=== PATIENT | male | born 1945 | race Caucasian/White ===

== ENCOUNTER 2017-01-24 18:07 | Inpatient (IN) | payer MEDICAID, OTHER ==
[~2017-01-24] VITALS: Ht 172.7 cm; Wt 79.8 kg
[~2017-01-24 18:07] MED LIST: ALBMDI INH; ATOR40TA68 PO; METH10TA7 PO; METO-304 PO; PROP20TA7 PO; [UNRECOGNIZED DRUG - CODE] PO
[2017-01-24 19:00] LABS: HEMATOCRIT 37.4 % (36-54); HEMOGLOBIN 12.2 g/dL (14.0-18.0); MEAN CORPUSCULAR HEMOGLOBIN 30 pg (27-31); MEAN CORPUSCULAR HGB CONC 33 % (32-36); MEAN CORPUSCULAR VOLUME 91 fL (79.0-98.0); PLATELET COUNT (AUTO) 319 K/uL (130-430); RED BLOOD CELL COUNT(AUTO) 4.12 MIL/uL (4.2-6.2); RED CELL DISTRIBUTION WIDTH 13.6 % (9.0-15.0); WHITE BLOOD COUNT (AUTO) 17.2 K/uL (4.8-10.8)
[2017-01-24 19:07] LABS: CALCIUM 7.4 mg/dL (8.4-11.0); CREATININE 1.39 mg/dL (0.55-1.30); POTASSIUM 3.8 mmol/L (3.5-5.1)
[2017-01-24 19:11] LABS: INR 1.2 (0.80-1.20); PROTHROMBIN TIME 12.4 SECS (9.5-12.5)
[2017-01-24 19:12] LABS: ALBUMIN 2.3 g/dL (3.4-4.8); TOTAL BILIRUBIN 0.2 mg/dL (0.0-1.0)
[2017-01-24 19:24] LABS: ATYPICAL LYMPHOCYTES % 6 % (0-0); BAND % (MANUAL) 4 % (0-6); BASOPHILS % (MANUAL) 0 % (0-2); EOSINOPHILS % (MANUAL) 0 % (0-7); LYMPHOCYTES % (MANUAL) 41 % (20-46); MONOCYTES % (MANUAL) 3 % (0-11)
[2017-01-24] MEDS ORDERED: NACL 0.9% 1,000 ML IV ONE ×2 (19:45)
[2017-01-24] MEDS ORDERED: SODIUM BICARBONATE 8.4% JECT 50 MEQ/50 ML SYRINGE IVP ONE (20:00)
[2017-01-24] MEDS ORDERED: LORazepam 2 MG/ML VIAL (FOR ER USE) IVP ONE (20:00)
[2017-01-24] MEDS ORDERED: methylPREDNISolone SOD SUCC/PF 62.5 MG/ML VIAL IVP ONE (20:00)
[2017-01-24] MEDS ORDERED: LORazepam 2 MG/ML VIAL (FOR ER USE) ONE (20:07)
[2017-01-24] MEDS ORDERED: methylPREDNISolone SOD SUCC/PF 62.5 MG/ML VIAL ONE (20:09)
[2017-01-24] MEDS ORDERED: SODIUM BICARBONATE 8.4% JECT 50 MEQ/50 ML SYRINGE ONE (20:10)
[2017-01-24] MEDS ORDERED: LABETALOL 100 MG/ 20ML VIAL IVP PRN (20:30)
[2017-01-24] MEDS ORDERED: ALBUTEROL MDI INHALATION 8 GM INH INH SCH (20:30)
[2017-01-24] MEDS ORDERED: guaiFENesin/D-METHORPHAN HB 118 ML SUGAR FREE PO PRN (20:30)
[2017-01-24] MEDS ORDERED: LORazepam 2 MG/ML VIAL IVP PRN (20:30)
[2017-01-24 20:40] VITALS: BP_SYST 148
[2017-01-24 21:00] VITALS: BP_SYST 128
[2017-01-24] MEDS: D5LR 1,000 ML IV SCH (21:02)
[2017-01-24] MEDS: IPRATROPIUM/ALBUTEROL SULFATE 3 ML AMPUL.NEB INH SCH ×2 (21:12→23:01)
[2017-01-24 21:45] VITALS: BP_SYST 148
[2017-01-24 21:59] VITALS: BP_SYST 138
[2017-01-24 22:00] VITALS: BP_SYST 137
[2017-01-24] MEDS: ATORVASTATIN 20 MG TABLET PO SCH (22:16)
[2017-01-24] MEDS: METHIMAZOLE 5 MG TABLET PO SCH (22:17)
[2017-01-24] MEDS: PROPRANOLOL HCL 10 MG TABLET (INDERAL) PO SCH (22:17)
[2017-01-24] MEDS ORDERED: AMIODARONE HCL 900 MG in D5W 482 ML IV SCH (22:45)
[2017-01-24] MEDS ORDERED: AMIODARONE HCL 900 MG/18 ML VIAL IV ONE (22:45)
[2017-01-24 23:00] VITALS: BP_SYST 180
[2017-01-24] MEDS ORDERED: METOPROLOL TARTRATE 5 MG/5 ML VIAL IVP PRN (23:00)
[2017-01-24] MEDS ORDERED: METOPROLOL TARTRATE 5 MG/5 ML VIAL ONE (23:09)
[2017-01-24] MEDS: methylPREDNISolone SOD SUCC/PF 62.5 MG/ML VIAL IVP SCH (23:14)
[2017-01-24] MEDS ORDERED: PIPERACILLIN/TAZOBACTAM 3.375 GM/VIAL (ZOSYN) IV ONE (23:25)
[2017-01-24 23:26] LABS: FREE T4 (FREE THYROXINE) 0.8 ng/dL (0.6-1.6); THYROID STIMULATING HORMONE 0.02 uIu/mL (0.34-4.82)
[2017-01-25] VITALS (34 sets, daily range): BP systolic 88–135
[2017-01-25] MEDS ORDERED: ALBUTEROL SULFATE 0.083% 2.5 MG/3 ML VIAL.NEB INH PRN (00:15)
[2017-01-25] MEDS ORDERED: ALBUTEROL SULFATE 0.083% 2.5 MG/3 ML VIAL.NEB INH ONE (00:17)
[2017-01-25] MEDS: LORazepam 2 MG/ML VIAL IVP PRN ×4 (00:26→10:32)
[2017-01-25] MEDS: PIPERACILLIN/TAZO 3.375/DEX-IS 50 ML IV SCH ×4 (00:37→17:41)
[2017-01-25] MEDS: MORPHINE 2 MG/ML INJ. SYRINGE IVP PRN ×2 (01:10→13:07)
[2017-01-25] MEDS: IPRATROPIUM/ALBUTEROL SULFATE 3 ML AMPUL.NEB INH SCH ×6 (03:12→23:03)
[2017-01-25] MEDS: methylPREDNISolone SOD SUCC/PF 62.5 MG/ML VIAL IVP SCH ×3 (05:43→21:30)
[2017-01-25] MEDS: D5LR 1,000 ML IV SCH (05:44)
[2017-01-25 06:35] LABS: HEMATOCRIT 48.8 % (36-54); HEMOGLOBIN 16.2 g/dL (14.0-18.0); MEAN CORPUSCULAR HEMOGLOBIN 30 pg (27-31); MEAN CORPUSCULAR HGB CONC 33 % (32-36); MEAN CORPUSCULAR VOLUME 89 fL (79.0-98.0); PLATELET COUNT (AUTO) 481 K/uL (130-430); RED BLOOD CELL COUNT(AUTO) 5.49 MIL/uL (4.2-6.2); RED CELL DISTRIBUTION WIDTH 13.7 % (9.0-15.0)
[2017-01-25 06:50] LABS: WHITE BLOOD COUNT (AUTO) 30.3 K/uL (4.8-10.8)
[2017-01-25] MEDS ORDERED: SODIUM BICARBONATE 8.4% JECT 50 MEQ/50 ML SYRINGE IVP ONE ×2 (07:43→13:45)
[2017-01-25 07:47] LABS: POTASSIUM 5.1 mmol/L (3.5-5.1)
[2017-01-25 07:48] LABS: CALCIUM 8.5 mg/dL (8.4-11.0); CREATININE 2.28 mg/dL (0.55-1.30); TOTAL BILIRUBIN 0.5 mg/dL (0.0-1.0)
[2017-01-25 07:49] LABS: ALBUMIN 2.7 g/dL (3.4-4.8); PHOSPHORUS 2.3 mg/dL (2.7-4.5)
[2017-01-25 08:36] LABS: BAND % (MANUAL) 13 % (0-6); BASOPHILS % (MANUAL) 0 % (0-2); EOSINOPHILS % (MANUAL) 0 % (0-7); LYMPHOCYTES % (MANUAL) 5 % (20-46); MONOCYTES % (MANUAL) 8 % (0-11)
[2017-01-25] MEDS ORDERED: METOPROLOL SUCCINATE 25 MG TAB.SR.24H (TOPROL XL) PO SCH (09:00)
[2017-01-25] MEDS: METHIMAZOLE 5 MG TABLET PO SCH ×3 (09:14→21:31)
[2017-01-25] MEDS: ENOXAPARIN SODIUM 40 MG/0.4 ML SYRINGE SUBCUT SCH (09:14)
[2017-01-25] MEDS: PROPRANOLOL HCL 10 MG TABLET (INDERAL) PO SCH ×2 (09:22→21:31)
[2017-01-25] MEDS: D5/0.45 NS 1,000 ML IV SCH ×4 (09:23→19:02)
[2017-01-25] MEDS: FUROSEMIDE 40 MG/4 ML VIAL IVP SCH ×2 (11:53→19:06)
[2017-01-25] MEDS ORDERED: SODIUM BICARBONATE 8.4% JECT 50 MEQ/50 ML SYRINGE ONE (13:47)
[2017-01-25] MEDS ORDERED: NOREPINEPHRINE 4 MG/4 ML VIAL IV ONE (14:46)
[2017-01-25] MEDS ORDERED: HEPARIN SODIUM,PORCINE 5000 UNITS/ML VIAL ONE (17:23)
[2017-01-25] MEDS: NITROGLYCERIN 1 INCH (GM) OINT. TP SCH (17:31)
[2017-01-25] MEDS ORDERED: VANCOMYCIN HCL 1 GM/NS PREMIX 250 ML IV ONE (18:00)
[2017-01-25] MEDS: metroNIDAZOLE 500 mg/NS 100 ML IV SCH (21:30)
[2017-01-25] MEDS: ATORVASTATIN 20 MG TABLET PO SCH (21:31)
[2017-01-25] MEDS ORDERED: AMIODARONE HCL 900 MG/18 ML VIAL IV ONE (23:57)
[2017-01-26] VITALS (34 sets, daily range): BP systolic 87–117
[2017-01-26] MEDS: PIPERACILLIN/TAZO 3.375/DEX-IS 50 ML IV SCH ×5 (00:19→23:10)
[2017-01-26] MEDS: NITROGLYCERIN 1 INCH (GM) OINT. TP SCH ×3 (01:00→17:53)
[2017-01-26] MEDS: FUROSEMIDE 40 MG/4 ML VIAL IVP SCH ×3 (03:00→19:21)
[2017-01-26] MEDS: IPRATROPIUM/ALBUTEROL SULFATE 3 ML AMPUL.NEB INH SCH ×5 (03:47→23:08)
[2017-01-26] MEDS: methylPREDNISolone SOD SUCC/PF 62.5 MG/ML VIAL IVP SCH ×3 (05:21→21:16)
[2017-01-26] MEDS: metroNIDAZOLE 500 mg/NS 100 ML IV SCH ×2 (05:21→14:46)
[2017-01-26] MEDS: D5/0.45 NS 1,000 ML IV SCH ×5 (05:22→23:10)
[2017-01-26 06:10] LABS: BASOPHILS % (AUTO) 0.2 % (0.0-2.0); HEMATOCRIT 38.7 % (36-54); HEMOGLOBIN 13.1 g/dL (14.0-18.0); LYMPHOCYTES # (AUTO) 1.1 K/uL (1.0-5.5); LYMPHOCYTES % (AUTO) 4.5 % (20.5-51.5); MEAN CORPUSCULAR HEMOGLOBIN 30 pg (27-31); MEAN CORPUSCULAR HGB CONC 34 % (32-36); MEAN CORPUSCULAR VOLUME 88 fL (79.0-98.0); MONOCYTES # (AUTO) 0.7 K/uL (0.0-1.0); MONOCYTES % (AUTO) 2.9 % (1.7-9.3); NEUTROPHILS # (AUTO) 22.7 K/uL (1.8-7.7); NEUTROPHILS % (AUTO) 92.4 % (40.0-70.0); PLATELET COUNT (AUTO) 272 K/uL (130-430); RED BLOOD CELL COUNT(AUTO) 4.38 MIL/uL (4.2-6.2); RED CELL DISTRIBUTION WIDTH 14.1 % (9.0-15.0); WHITE BLOOD COUNT (AUTO) 24.5 K/uL (4.8-10.8)
[2017-01-26 06:27] LABS: CALCIUM 7.6 mg/dL (8.4-11.0); CREATININE 3.06 mg/dL (0.55-1.30); TOTAL BILIRUBIN 0.7 mg/dL (0.0-1.0)
[2017-01-26] MEDS: ENOXAPARIN SODIUM 40 MG/0.4 ML SYRINGE SUBCUT SCH (10:48)
[2017-01-26] MEDS: METHIMAZOLE 5 MG TABLET PO SCH ×3 (10:49→20:36)
[2017-01-26] MEDS: PROPRANOLOL HCL 10 MG TABLET (INDERAL) PO SCH ×2 (10:49→20:36)
[2017-01-26] MEDS ORDERED: HEPARIN SODIUM,PORCINE 5000 UNITS/ML VIAL IVP ONE (15:15)
[2017-01-26] MEDS ORDERED: VANCOMYCIN HCL 1,000 MG in NS 250 ML IV SCH (17:00)
[2017-01-26] MEDS: ATORVASTATIN 20 MG TABLET PO SCH (20:36)
[2017-01-27] VITALS (32 sets, daily range): BP systolic 92–125
[2017-01-27] MEDS: NITROGLYCERIN 1 INCH (GM) OINT. TP SCH ×3 (01:11→18:14)
[2017-01-27] MEDS ORDERED: FUROSEMIDE 40 MG/4 ML VIAL ONE (02:08)
[2017-01-27] MEDS: FUROSEMIDE 40 MG/4 ML VIAL IVP SCH (02:12)
[2017-01-27] MEDS: IPRATROPIUM/ALBUTEROL SULFATE 3 ML AMPUL.NEB INH SCH ×6 (03:01→23:22)
[2017-01-27] MEDS: D5/0.45 NS 1,000 ML IV SCH (04:04)
[2017-01-27] MEDS ORDERED: AMIODARONE HCL 900 MG/18 ML VIAL IV ONE (04:25)
[2017-01-27] MEDS: PIPERACILLIN/TAZO 3.375/DEX-IS 50 ML IV SCH ×4 (05:38→23:58)
[2017-01-27] MEDS: methylPREDNISolone SOD SUCC/PF 62.5 MG/ML VIAL IVP SCH ×3 (05:38→21:52)
[2017-01-27 06:22] LABS: HEMATOCRIT 34.6 % (36-54); HEMOGLOBIN 11.8 g/dL (14.0-18.0); MEAN CORPUSCULAR HEMOGLOBIN 30 pg (27-31); MEAN CORPUSCULAR HGB CONC 34 % (32-36); MEAN CORPUSCULAR VOLUME 89 fL (79.0-98.0); PLATELET COUNT (AUTO) 255 K/uL (130-430); RED CELL DISTRIBUTION WIDTH 13.8 % (9.0-15.0); WHITE BLOOD COUNT (AUTO) 24.8 K/uL (4.8-10.8)
[2017-01-27 07:18] LABS: ALANINE AMINOTRANSFERASE 110 U/L (12-78); ALBUMIN 2.2 g/dL (3.4-4.8); ANION GAP 9 (5-15); ASPARTATE AMINOTRANSFERASE 71 U/L (10-37); CALCIUM 7.7 mg/dL (8.4-11.0); CHLORIDE 95 mmol/L (98-107); CREATININE 2.66 mg/dL (0.55-1.30); POTASSIUM 3.2 mmol/L (3.5-5.1); SODIUM SERUM 130 mmol/L (136-145); TOTAL BILIRUBIN 0.4 mg/dL (0.0-1.0); UREA NITROGEN, BLOOD 48 mg/dL (8-21)
[2017-01-27 07:22] LABS: GLUCOSE 434 mg/dL (70-99)
[2017-01-27 07:26] LABS: BAND % (MANUAL) 8 % (0-6); BASOPHILS % (MANUAL) 0 % (0-2); EOSINOPHILS % (MANUAL) 0 % (0-7); LYMPHOCYTES % (MANUAL) 9 % (20-46); MONOCYTES % (MANUAL) 4 % (0-11)
[2017-01-27] MEDS ORDERED: NOREPINEPHRINE 4 MG/4 ML VIAL IV ONE (08:56)
[2017-01-27] MEDS: ENOXAPARIN SODIUM 40 MG/0.4 ML SYRINGE SUBCUT SCH (09:26)
[2017-01-27] MEDS: METHIMAZOLE 5 MG TABLET PO SCH ×3 (09:27→20:37)
[2017-01-27] MEDS: PROPRANOLOL HCL 10 MG TABLET (INDERAL) PO SCH ×2 (09:27→20:38)
[2017-01-27] MEDS ORDERED: NS 100 ML IV ONE (10:00)
[2017-01-27] MEDS ORDERED: POTASSIUM CHLORIDE 20 MEQ/PKT PACKET PO ONE (13:00)
[2017-01-27] MEDS ORDERED: DEXTROSE 50% JECT 50 ML DISP.SYRIN IVP PRN (18:00)
[2017-01-27] MEDS ORDERED: INSULIN NPH 100 UNITS/ML 10 ML VIAL SUBCUT ONE (18:00)
[2017-01-27] MEDS: INSULIN REGULAR, HUMAN 100 UNITS/ML, 10 ML VIAL (novoLIN R) SUBCUT PRN ×2 (18:19→21:59)
[2017-01-27] MEDS: ATORVASTATIN 20 MG TABLET PO SCH (20:37)
[2017-01-27] MEDS: AMIODARONE HCL 200 MG TABLET PO SCH (21:00)
[2017-01-28] VITALS (30 sets, daily range): BP systolic 103–136
[2017-01-28] MEDS: NITROGLYCERIN 1 INCH (GM) OINT. TP SCH ×3 (01:51→16:22)
[2017-01-28] MEDS: INSULIN REGULAR, HUMAN 100 UNITS/ML, 10 ML VIAL (novoLIN R) SUBCUT PRN ×6 (02:01→21:19)
[2017-01-28] MEDS: IPRATROPIUM/ALBUTEROL SULFATE 3 ML AMPUL.NEB INH SCH ×6 (04:00→23:03)
[2017-01-28] MEDS: PIPERACILLIN/TAZO 3.375/DEX-IS 50 ML IV SCH ×3 (05:32→17:26)
[2017-01-28] MEDS: methylPREDNISolone SOD SUCC/PF 62.5 MG/ML VIAL IVP SCH ×3 (05:34→21:06)
[2017-01-28 06:44] LABS: BASOPHILS % (AUTO) 0.1 % (0.0-2.0); HEMATOCRIT 33.9 % (36-54); HEMOGLOBIN 11.5 g/dL (14.0-18.0); LYMPHOCYTES # (AUTO) 0.8 K/uL (1.0-5.5); LYMPHOCYTES % (AUTO) 3.9 % (20.5-51.5); MEAN CORPUSCULAR HEMOGLOBIN 30 pg (27-31); MEAN CORPUSCULAR HGB CONC 34 % (32-36); MEAN CORPUSCULAR VOLUME 89 fL (79.0-98.0); MONOCYTES # (AUTO) 0.8 K/uL (0.0-1.0); MONOCYTES % (AUTO) 3.6 % (1.7-9.3); NEUTROPHILS # (AUTO) 19.3 K/uL (1.8-7.7); NEUTROPHILS % (AUTO) 92.4 % (40.0-70.0); PLATELET COUNT (AUTO) 248 K/uL (130-430); RED BLOOD CELL COUNT(AUTO) 3.82 MIL/uL (4.2-6.2); RED CELL DISTRIBUTION WIDTH 13.7 % (9.0-15.0); WHITE BLOOD COUNT (AUTO) 20.9 K/uL (4.8-10.8)
[2017-01-28 06:51] LABS: ALANINE AMINOTRANSFERASE 85 U/L (12-78); ALBUMIN 2.2 g/dL (3.4-4.8); ANION GAP 5 (5-15); ASPARTATE AMINOTRANSFERASE 39 U/L (10-37); CALCIUM 8.2 mg/dL (8.4-11.0); CHLORIDE 101 mmol/L (98-107); GLUCOSE 262 mg/dL (70-99); SODIUM SERUM 136 mmol/L (136-145); TOTAL BILIRUBIN 0.4 mg/dL (0.0-1.0); UREA NITROGEN, BLOOD 65 mg/dL (8-21)
[2017-01-28] MEDS ORDERED: INSULIN NPH 100 UNITS/ML 10 ML VIAL SUBCUT SCH ×2 (07:00→17:00)
[2017-01-28] MEDS: FUROSEMIDE 40 MG/4 ML VIAL IVP SCH (08:15)
[2017-01-28] MEDS: ENOXAPARIN SODIUM 40 MG/0.4 ML SYRINGE SUBCUT SCH (08:15)
[2017-01-28] MEDS: PROPRANOLOL HCL 10 MG TABLET (INDERAL) PO SCH ×2 (08:17→21:06)
[2017-01-28] MEDS: METHIMAZOLE 5 MG TABLET PO SCH ×3 (08:17→21:06)
[2017-01-28] MEDS: AMIODARONE HCL 200 MG TABLET PO SCH ×2 (08:17→21:06)
[2017-01-28] MEDS ORDERED: POTASSIUM CHLORIDE 20 MEQ/PKT PACKET PO ONE (09:00)
[2017-01-28] MEDS: ACETAMINOPHEN 650 MG/20.3 ML UDC GT PRN (09:07)
[2017-01-28] MEDS: ATORVASTATIN 20 MG TABLET PO SCH (21:06)
[2017-01-29] VITALS (29 sets, daily range): BP systolic 115–139
[2017-01-29] MEDS: PIPERACILLIN/TAZO 3.375/DEX-IS 50 ML IV SCH ×4 (00:25→17:25)
[2017-01-29] MEDS: NITROGLYCERIN 1 INCH (GM) OINT. TP SCH ×3 (00:26→17:26)
[2017-01-29] MEDS: INSULIN REGULAR, HUMAN 100 UNITS/ML, 10 ML VIAL (novoLIN R) SUBCUT PRN ×4 (02:16→15:30)
[2017-01-29] MEDS: ACETAMINOPHEN 650 MG/20.3 ML UDC GT PRN (02:40)
[2017-01-29] MEDS: IPRATROPIUM/ALBUTEROL SULFATE 3 ML AMPUL.NEB INH SCH ×6 (03:59→23:20)
[2017-01-29] MEDS: methylPREDNISolone SOD SUCC/PF 62.5 MG/ML VIAL IVP SCH (05:33)
[2017-01-29 06:25] LABS: HEMATOCRIT 37.1 % (36-54); HEMOGLOBIN 12.5 g/dL (14.0-18.0); MEAN CORPUSCULAR HEMOGLOBIN 30 pg (27-31); MEAN CORPUSCULAR HGB CONC 34 % (32-36); MEAN CORPUSCULAR VOLUME 88 fL (79.0-98.0); PLATELET COUNT (AUTO) 258 K/uL (130-430); RED CELL DISTRIBUTION WIDTH 13.9 % (9.0-15.0); WHITE BLOOD COUNT (AUTO) 21.4 K/uL (4.8-10.8)
[2017-01-29 06:47] LABS: ALANINE AMINOTRANSFERASE 71 U/L (12-78); ALBUMIN 2.3 g/dL (3.4-4.8); ANION GAP 5 (5-15); ASPARTATE AMINOTRANSFERASE 38 U/L (10-37); CALCIUM 8.3 mg/dL (8.4-11.0); CHLORIDE 106 mmol/L (98-107); CREATININE 2.58 mg/dL (0.55-1.30); GLUCOSE 268 mg/dL (70-99); SODIUM SERUM 144 mmol/L (136-145); TOTAL BILIRUBIN 0.4 mg/dL (0.0-1.0); UREA NITROGEN, BLOOD 83 mg/dL (8-21)
[2017-01-29 06:58] LABS: POTASSIUM 2.9 mmol/L (3.5-5.1)
[2017-01-29 08:21] LABS: BAND % (MANUAL) 0 % (0-6); LYMPHOCYTES % (MANUAL) 5 % (20-46); MONOCYTES % (MANUAL) 4 % (0-11)
[2017-01-29 08:22] LABS: BASOPHILS % (MANUAL) 0 % (0-2); EOSINOPHILS % (MANUAL) 0 % (0-7)
[2017-01-29] MEDS: FUROSEMIDE 40 MG/4 ML VIAL IVP SCH (08:25)
[2017-01-29] MEDS: PROPRANOLOL HCL 10 MG TABLET (INDERAL) PO SCH ×2 (08:26→21:16)
[2017-01-29] MEDS: AMIODARONE HCL 200 MG TABLET PO SCH ×2 (08:26→21:12)
[2017-01-29] MEDS: METHIMAZOLE 5 MG TABLET PO SCH ×3 (08:27→21:12)
[2017-01-29] MEDS: ENOXAPARIN SODIUM 40 MG/0.4 ML SYRINGE SUBCUT SCH (08:27)
[2017-01-29] MEDS ORDERED: COMMUNICATION ORDER XX ONE (08:45)
[2017-01-29] MEDS ORDERED: methylPREDNISolone SOD SUCC 40 MG/ML VIAL IVP ONE (09:45)
[2017-01-29] MEDS ORDERED: FAMOTIDINE PF 20 MG/2 ML VIAL IVP ONE (09:45)
[2017-01-29] MEDS ORDERED: NS IV ONE (10:00)
[2017-01-29] MEDS ORDERED: POTASSIUM ACETATE IV ONE (10:00)
[2017-01-29] MEDS: INSULIN ASPART 100 UNITS/ML, 10 ML VIAL (NovoLOG) SUBCUT PRN ×2 (17:42→22:32)
[2017-01-29] MEDS ORDERED: methylPREDNISolone SOD SUCC/PF 62.5 MG/ML VIAL IVP SCH (21:00)
[2017-01-29] MEDS: ATORVASTATIN 20 MG TABLET PO SCH (21:11)
[2017-01-29] MEDS: FAMOTIDINE PF 20 MG/2 ML VIAL IVP SCH (21:13)
[2017-01-29] MEDS: methylPREDNISolone SOD SUCC 40 MG/ML VIAL IVP SCH (21:13)
[2017-01-30] VITALS (31 sets, daily range): BP systolic 107–148
[2017-01-30] MEDS ORDERED: NITROGLYCERIN 1 INCH (GM) OINT. ONE (00:25)
[2017-01-30] MEDS: PIPERACILLIN/TAZO 3.375/DEX-IS 50 ML IV SCH ×2 (00:29→05:14)
[2017-01-30] MEDS: NITROGLYCERIN 1 INCH (GM) OINT. TP SCH ×3 (00:29→16:45)
[2017-01-30] MEDS: INSULIN ASPART 100 UNITS/ML, 10 ML VIAL (NovoLOG) SUBCUT PRN ×6 (01:59→22:10)
[2017-01-30] MEDS: IPRATROPIUM/ALBUTEROL SULFATE 3 ML AMPUL.NEB INH SCH ×6 (03:59→23:14)
[2017-01-30 06:35] LABS: BASOPHILS # (AUTO) 0.1 K/uL (0.0-0.2); BASOPHILS % (AUTO) 0.2 % (0.0-2.0); HEMATOCRIT 40.8 % (36-54); HEMOGLOBIN 13.5 g/dL (14.0-18.0); LYMPHOCYTES # (AUTO) 0.9 K/uL (1.0-5.5); LYMPHOCYTES % (AUTO) 3.7 % (20.5-51.5); MEAN CORPUSCULAR HEMOGLOBIN 29 pg (27-31); MEAN CORPUSCULAR HGB CONC 33 % (32-36); MEAN CORPUSCULAR VOLUME 89 fL (79.0-98.0); MONOCYTES # (AUTO) 1.9 K/uL (0.0-1.0); MONOCYTES % (AUTO) 7.7 % (1.7-9.3); NEUTROPHILS # (AUTO) 22.4 K/uL (1.8-7.7); NEUTROPHILS % (AUTO) 88.4 % (40.0-70.0); PLATELET COUNT (AUTO) 302 K/uL (130-430); RED CELL DISTRIBUTION WIDTH 14.6 % (9.0-15.0); WHITE BLOOD COUNT (AUTO) 25.3 K/uL (4.8-10.8)
[2017-01-30 07:01] LABS: ALANINE AMINOTRANSFERASE 65 U/L (12-78); ALBUMIN 2.5 g/dL (3.4-4.8); ASPARTATE AMINOTRANSFERASE 31 U/L (10-37); CALCIUM 8.7 mg/dL (8.4-11.0); CREATININE 2.47 mg/dL (0.55-1.30); GLUCOSE 299 mg/dL (70-99); THYROID STIMULATING HORMONE 0.01 uIu/mL (0.34-4.82); TOTAL BILIRUBIN 0.4 mg/dL (0.0-1.0); UREA NITROGEN, BLOOD 92 mg/dL (8-21)
[2017-01-30 07:33] LABS: ANION GAP 6 (5-15); CHLORIDE 110 mmol/L (98-107); POTASSIUM 3.2 mmol/L (3.5-5.1); SODIUM SERUM 149 mmol/L (136-145)
[2017-01-30] MEDS: FUROSEMIDE 40 MG/4 ML VIAL IVP SCH (08:07)
[2017-01-30] MEDS: ENOXAPARIN SODIUM 40 MG/0.4 ML SYRINGE SUBCUT SCH (08:07)
[2017-01-30] MEDS: methylPREDNISolone SOD SUCC 40 MG/ML VIAL IVP SCH ×2 (08:07→21:47)
[2017-01-30] MEDS: METHIMAZOLE 5 MG TABLET PO SCH ×2 (08:07→21:50)
[2017-01-30] MEDS: FAMOTIDINE PF 20 MG/2 ML VIAL IVP SCH ×2 (08:07→21:49)
[2017-01-30] MEDS: PROPRANOLOL HCL 10 MG TABLET (INDERAL) PO SCH ×2 (08:08→21:50)
[2017-01-30] MEDS: AMIODARONE HCL 200 MG TABLET PO SCH ×2 (08:08→21:47)
[2017-01-30] MEDS ORDERED: KCL 40 mEq in 100 mL (PREMIX) 100 ML IV ONE (11:30)
[2017-01-30] MEDS: D5W 1,000 ML IV SCH (11:44)
[2017-01-30] MEDS ORDERED: POTASSIUM CHLORIDE 40 MEQ in NS 250 ML IV ONE (12:00)
[2017-01-30] MEDS: metroNIDAZOLE 250 mg/NS 50 ML IV SCH ×2 (13:28→21:46)
[2017-01-30] MEDS: ACETAMINOPHEN 650 MG/20.3 ML UDC GT PRN (17:11)
[2017-01-30] MEDS: ATORVASTATIN 20 MG TABLET PO SCH (21:50)
[2017-01-31] VITALS (35 sets, daily range): BP systolic 88–151
[2017-01-31] MEDS: NITROGLYCERIN 1 INCH (GM) OINT. TP SCH ×3 (01:58→17:47)
[2017-01-31] MEDS: INSULIN ASPART 100 UNITS/ML, 10 ML VIAL (NovoLOG) SUBCUT PRN ×6 (02:01→20:52)
[2017-01-31] MEDS: IPRATROPIUM/ALBUTEROL SULFATE 3 ML AMPUL.NEB INH SCH ×5 (03:13→23:19)
[2017-01-31] MEDS: metroNIDAZOLE 250 mg/NS 50 ML IV SCH ×3 (06:39→22:11)
[2017-01-31 07:18] LABS: HEMATOCRIT 41.3 % (36-54); HEMOGLOBIN 13.8 g/dL (14.0-18.0); LYMPHOCYTES # (AUTO) 0.9 K/uL (1.0-5.5); MEAN CORPUSCULAR HEMOGLOBIN 30 pg (27-31); MEAN CORPUSCULAR HGB CONC 33 % (32-36); MEAN CORPUSCULAR VOLUME 89 fL (79.0-98.0); MONOCYTES # (AUTO) 1.9 K/uL (0.0-1.0); MONOCYTES % (AUTO) 6.5 % (1.7-9.3); NEUTROPHILS # (AUTO) 26.9 K/uL (1.8-7.7); NEUTROPHILS % (AUTO) 90.5 % (40.0-70.0); PLATELET COUNT (AUTO) 326 K/uL (130-430); RED BLOOD CELL COUNT(AUTO) 4.64 MIL/uL (4.2-6.2); RED CELL DISTRIBUTION WIDTH 14.5 % (9.0-15.0); WHITE BLOOD COUNT (AUTO) 29.7 K/uL (4.8-10.8)
[2017-01-31 07:24] LABS: ALANINE AMINOTRANSFERASE 69 U/L (12-78); ALBUMIN 2.5 g/dL (3.4-4.8); ANION GAP 6 (5-15); ASPARTATE AMINOTRANSFERASE 33 U/L (10-37); CALCIUM 8.6 mg/dL (8.4-11.0); CHLORIDE 113 mmol/L (98-107); CREATININE 2.51 mg/dL (0.55-1.30); GLUCOSE 356 mg/dL (70-99); POTASSIUM 3.7 mmol/L (3.5-5.1); SODIUM SERUM 152 mmol/L (136-145); TOTAL BILIRUBIN 0.3 mg/dL (0.0-1.0)
[2017-01-31 07:47] LABS: UREA NITROGEN, BLOOD 103 mg/dL (8-21)
[2017-01-31] MEDS: FUROSEMIDE 40 MG/4 ML VIAL IVP SCH (09:30)
[2017-01-31] MEDS: ENOXAPARIN SODIUM 40 MG/0.4 ML SYRINGE SUBCUT SCH (09:30)
[2017-01-31] MEDS: FAMOTIDINE PF 20 MG/2 ML VIAL IVP SCH ×2 (09:30→20:41)
[2017-01-31] MEDS: AMIODARONE HCL 200 MG TABLET PO SCH ×2 (09:31→20:43)
[2017-01-31] MEDS: METHIMAZOLE 5 MG TABLET PO SCH ×2 (09:31→20:43)
[2017-01-31] MEDS ORDERED: PROPRANOLOL HCL 10 MG TABLET (INDERAL) ONE (10:45)
[2017-01-31] MEDS: PROPRANOLOL HCL 10 MG TABLET (INDERAL) PO SCH ×2 (10:49→20:42)
[2017-01-31] MEDS: MORPHINE 2 MG/ML INJ. SYRINGE IVP PRN ×2 (11:37→15:46)
[2017-01-31] MEDS: D5W 1,000 ML IV SCH (12:36)
[2017-01-31] MEDS: LORazepam 2 MG/ML VIAL IVP PRN (14:07)
[2017-01-31] MEDS ORDERED: DIGOXIN 0.5 MG/2 ML AMP IVP ONE (17:00)
[2017-01-31] MEDS ORDERED: DIGOXIN 0.5 MG/2 ML AMP ONE (17:02)
[2017-01-31] MEDS ORDERED: DILTIAZEM HCL 25 MG/5 ML VIAL ONE (17:03)
[2017-01-31] MEDS: DILTIAZEM HCL 25 MG/5 ML VIAL IVP ONE ×2 (17:17→17:42)
[2017-01-31] MEDS ORDERED: DILTIAZEM HCL 25 MG/5 ML VIAL IVP ONE (17:30)
[2017-01-31 18:16] LABS: ANION GAP 7 (5-15); CALCIUM 8.6 mg/dL (8.4-11.0); CHLORIDE 110 mmol/L (98-107); CREATININE 2.71 mg/dL (0.55-1.30); GLUCOSE 244 mg/dL (70-99); SODIUM SERUM 150 mmol/L (136-145)
[2017-01-31 18:23] LABS: UREA NITROGEN, BLOOD 109 mg/dL (8-21)
[2017-01-31] MEDS ORDERED: DILTIAZEM HCL 125 MG/25 ML VIAL IV ONE (19:58)
[2017-01-31] MEDS: DILTIAZEM HCL 125 MG in D5W 100 ML IV SCH (20:41)
[2017-01-31] MEDS: ATORVASTATIN 20 MG TABLET PO SCH (20:43)
[2017-02-01] VITALS (29 sets, daily range): BP systolic 90–125
[2017-02-01] MEDS: D5W 1,000 ML IV SCH ×2 (00:05→10:09)
[2017-02-01] MEDS: NITROGLYCERIN 1 INCH (GM) OINT. TP SCH ×3 (00:05→18:21)
[2017-02-01] MEDS: INSULIN ASPART 100 UNITS/ML, 10 ML VIAL (NovoLOG) SUBCUT PRN ×6 (02:07→22:03)
[2017-02-01] MEDS ORDERED: DILTIAZEM HCL 125 MG/25 ML VIAL IV ONE (04:03)
[2017-02-01] MEDS: DILTIAZEM HCL 125 MG in D5W 100 ML IV SCH ×2 (04:11→12:37)
[2017-02-01] MEDS: IPRATROPIUM/ALBUTEROL SULFATE 3 ML AMPUL.NEB INH SCH ×6 (04:47→23:12)
[2017-02-01] MEDS: metroNIDAZOLE 250 mg/NS 50 ML IV SCH ×3 (05:37→21:58)
[2017-02-01 06:34] LABS: MEAN CORPUSCULAR HGB CONC 33 % (32-36); RED BLOOD CELL COUNT(AUTO) 4.47 MIL/uL (4.2-6.2)
[2017-02-01 06:52] LABS: ANION GAP 6 (5-15); CALCIUM 8.4 mg/dL (8.4-11.0); CHLORIDE 107 mmol/L (98-107); CREATININE 2.87 mg/dL (0.55-1.30); GLUCOSE 270 mg/dL (70-99); POTASSIUM 3.9 mmol/L (3.5-5.1); SODIUM SERUM 146 mmol/L (136-145)
[2017-02-01 06:59] LABS: HEMOGLOBIN 13.2 g/dL (14.0-18.0); MEAN CORPUSCULAR HEMOGLOBIN 30 pg (27-31); MEAN CORPUSCULAR VOLUME 89 fL (79.0-98.0); PLATELET COUNT (AUTO) 346 K/uL (130-430); RED CELL DISTRIBUTION WIDTH 14.3 % (9.0-15.0); WHITE BLOOD COUNT (AUTO) 28.6 K/uL (4.8-10.8)
[2017-02-01 07:06] LABS: UREA NITROGEN, BLOOD 112 mg/dL (8-21)
[2017-02-01 08:47] LABS: BASOPHILS % (MANUAL) 0 % (0-2); EOSINOPHILS % (MANUAL) 0 % (0-7); LYMPHOCYTES % (MANUAL) 11 % (20-46); MONOCYTES % (MANUAL) 8 % (0-11)
[2017-02-01] MEDS: AMIODARONE HCL 200 MG TABLET PO SCH ×2 (08:57→20:33)
[2017-02-01] MEDS: FAMOTIDINE PF 20 MG/2 ML VIAL IVP SCH ×2 (08:58→20:32)
[2017-02-01] MEDS: METHIMAZOLE 5 MG TABLET PO SCH ×2 (08:58→20:33)
[2017-02-01] MEDS: PROPRANOLOL HCL 10 MG TABLET (INDERAL) PO SCH ×2 (08:58→20:33)
[2017-02-01] MEDS ORDERED: ALBUMIN HUMAN 5% 250 ML IV ONE (09:00)
[2017-02-01] MEDS ORDERED: FUROSEMIDE 40 MG TABLET PO SCH (09:00)
[2017-02-01] MEDS: ENOXAPARIN SODIUM 40 MG/0.4 ML SYRINGE SUBCUT SCH (10:06)
[2017-02-01] MEDS: ATORVASTATIN 20 MG TABLET PO SCH (20:33)
[2017-02-01] MEDS ORDERED: PANTOPRAZOLE SODIUM 40 MG/VIAL (PROTONIX) IVP ONE (23:00)
[2017-02-02] VITALS (37 sets, daily range): BP systolic 59–133
[2017-02-02] MEDS: NITROGLYCERIN 1 INCH (GM) OINT. TP SCH ×3 (01:25→17:36)
[2017-02-02] MEDS: INSULIN ASPART 100 UNITS/ML, 10 ML VIAL (NovoLOG) SUBCUT PRN ×5 (01:29→17:41)
[2017-02-02] MEDS: IPRATROPIUM/ALBUTEROL SULFATE 3 ML AMPUL.NEB INH SCH ×6 (03:48→23:27)
[2017-02-02] MEDS: metroNIDAZOLE 250 mg/NS 50 ML IV SCH ×3 (05:20→21:09)
[2017-02-02 07:18] LABS: HEMATOCRIT 32.6 % (36-54); HEMOGLOBIN 11.1 g/dL (14.0-18.0); MEAN CORPUSCULAR HEMOGLOBIN 30 pg (27-31); MEAN CORPUSCULAR HGB CONC 34 % (32-36); MEAN CORPUSCULAR VOLUME 89 fL (79.0-98.0); PLATELET COUNT (AUTO) 237 K/uL (130-430); RED BLOOD CELL COUNT(AUTO) 3.67 MIL/uL (4.2-6.2); WHITE BLOOD COUNT (AUTO) 25.7 K/uL (4.8-10.8)
[2017-02-02 07:22] LABS: ALANINE AMINOTRANSFERASE 50 U/L (12-78); ALBUMIN 2.3 g/dL (3.4-4.8); ANION GAP 6 (5-15); ASPARTATE AMINOTRANSFERASE 40 U/L (10-37); CALCIUM 8.2 mg/dL (8.4-11.0); CHLORIDE 104 mmol/L (98-107); CREATININE 2.58 mg/dL (0.55-1.30); GLUCOSE 217 mg/dL (70-99); PHOSPHORUS 6.3 mg/dL (2.7-4.5); POTASSIUM 3.3 mmol/L (3.5-5.1); SODIUM SERUM 144 mmol/L (136-145); TOTAL BILIRUBIN 0.6 mg/dL (0.0-1.0)
[2017-02-02 07:30] LABS: UREA NITROGEN, BLOOD 104 mg/dL (8-21)
[2017-02-02] MEDS: D5W 1,000 ML IV SCH ×3 (08:18→18:59)
[2017-02-02] MEDS: LACTOBACILLUS RHAMNOSUS GG 1 CAP CAPSULE NG SCH ×2 (09:10→20:50)
[2017-02-02] MEDS: METHIMAZOLE 5 MG TABLET PO SCH ×2 (09:11→20:51)
[2017-02-02] MEDS: PANTOPRAZOLE SODIUM 40 MG/VIAL (PROTONIX) IVP SCH ×2 (09:11→20:50)
[2017-02-02] MEDS: AMIODARONE HCL 200 MG TABLET PO SCH ×2 (09:11→20:51)
[2017-02-02] MEDS: PROPRANOLOL HCL 10 MG TABLET (INDERAL) PO SCH ×2 (09:12→20:51)
[2017-02-02] MEDS: VANCOMYCIN HCL ORAL SOLUTION 250 MG/5 ML, 80 ML NG SCH ×2 (09:43→20:51)
[2017-02-02 11:29] LABS: ATYPICAL LYMPHOCYTES % 1 % (0-0); BASOPHILS % (MANUAL) 0 % (0-2); EOSINOPHILS % (MANUAL) 0 % (0-7); LYMPHOCYTES % (MANUAL) 7 % (20-46); MONOCYTES % (MANUAL) 4 % (0-11)
[2017-02-02] MEDS ORDERED: KCL 20 mEq in 100 mL (PREMIX) 100 ML IV ONE (15:00)
[2017-02-02] MEDS: ATORVASTATIN 20 MG TABLET PO SCH (20:51)
[2017-02-03] VITALS (31 sets, daily range): BP systolic 98–133
[2017-02-03] MEDS: NITROGLYCERIN 1 INCH (GM) OINT. TP SCH ×3 (01:24→17:39)
[2017-02-03] MEDS: INSULIN ASPART 100 UNITS/ML, 10 ML VIAL (NovoLOG) SUBCUT PRN ×4 (01:57→14:53)
[2017-02-03] MEDS: IPRATROPIUM/ALBUTEROL SULFATE 3 ML AMPUL.NEB INH SCH ×6 (03:43→23:05)
[2017-02-03] MEDS: metroNIDAZOLE 250 mg/NS 50 ML IV SCH ×3 (05:43→23:43)
[2017-02-03] MEDS: D5W 1,000 ML IV SCH ×2 (06:41→17:38)
[2017-02-03] MEDS: AMIODARONE HCL 200 MG TABLET PO SCH ×2 (10:24→21:51)
[2017-02-03] MEDS: PANTOPRAZOLE SODIUM 40 MG/VIAL (PROTONIX) IVP SCH ×2 (10:24→21:40)
[2017-02-03] MEDS: PROPRANOLOL HCL 10 MG TABLET (INDERAL) PO SCH ×2 (10:25→21:52)
[2017-02-03] MEDS: METHIMAZOLE 5 MG TABLET PO SCH ×2 (10:25→21:52)
[2017-02-03] MEDS: VANCOMYCIN HCL ORAL SOLUTION 250 MG/5 ML, 80 ML NG SCH ×2 (10:25→21:52)
[2017-02-03] MEDS: LACTOBACILLUS RHAMNOSUS GG 1 CAP CAPSULE NG SCH ×2 (10:33→21:51)
[2017-02-03 11:22] LABS: LYMPHOCYTES # (AUTO) 2.1 K/uL (1.0-5.5); MONOCYTES # (AUTO) 1.6 K/uL (0.0-1.0); WHITE BLOOD COUNT (AUTO) 29.4 K/uL (4.8-10.8)
[2017-02-03 11:30] LABS: ANION GAP 8 (5-15); CALCIUM 7.9 mg/dL (8.4-11.0); CHLORIDE 101 mmol/L (98-107); CREATININE 2.09 mg/dL (0.55-1.30); GLUCOSE 214 mg/dL (70-99); POTASSIUM 3.3 mmol/L (3.5-5.1); SODIUM SERUM 142 mmol/L (136-145); UREA NITROGEN, BLOOD 86 mg/dL (8-21)
[2017-02-03 11:32] LABS: BASOPHILS # (AUTO) 0.6 K/uL (0.0-0.2); EOSINOPHILS # (AUTO) 0.3 K/uL (0.0-0.4); EOSINOPHILS % (AUTO) 0.9 % (0.0-4.0); HEMOGLOBIN 10.5 g/dL (14.0-18.0); LYMPHOCYTES % (AUTO) 7.3 % (20.5-51.5); MEAN CORPUSCULAR HEMOGLOBIN 30 pg (27-31); MEAN CORPUSCULAR HGB CONC 34 % (32-36); MEAN CORPUSCULAR VOLUME 88 fL (79.0-98.0); MONOCYTES % (AUTO) 5.3 % (1.7-9.3); NEUTROPHILS # (AUTO) 24.8 K/uL (1.8-7.7); NEUTROPHILS % (AUTO) 84.5 % (40.0-70.0); PLATELET COUNT (AUTO) 226 K/uL (130-430); RED BLOOD CELL COUNT(AUTO) 3.53 MIL/uL (4.2-6.2); RED CELL DISTRIBUTION WIDTH 13.5 % (9.0-15.0)
[2017-02-03] MEDS: ATORVASTATIN 20 MG TABLET PO SCH (21:51)
[2017-02-04] VITALS (27 sets, daily range): BP systolic 99–141
[2017-02-04] MEDS: NITROGLYCERIN 1 INCH (GM) OINT. TP SCH ×3 (01:23→16:59)
[2017-02-04] MEDS: IPRATROPIUM/ALBUTEROL SULFATE 3 ML AMPUL.NEB INH SCH ×6 (03:09→23:12)
[2017-02-04] MEDS: D5W 1,000 ML IV SCH ×2 (05:06→16:08)
[2017-02-04] MEDS: metroNIDAZOLE 250 mg/NS 50 ML IV SCH ×3 (05:06→21:31)
[2017-02-04 06:46] LABS: EOSINOPHILS # (AUTO) 0.3 K/uL (0.0-0.4); EOSINOPHILS % (AUTO) 0.7 % (0.0-4.0); HEMATOCRIT 31.8 % (36-54); HEMOGLOBIN 10.8 g/dL (14.0-18.0); LYMPHOCYTES # (AUTO) 2.8 K/uL (1.0-5.5); LYMPHOCYTES % (AUTO) 7.9 % (20.5-51.5); MEAN CORPUSCULAR HEMOGLOBIN 30 pg (27-31); MEAN CORPUSCULAR HGB CONC 34 % (32-36); MEAN CORPUSCULAR VOLUME 89 fL (79.0-98.0); MONOCYTES % (AUTO) 5.6 % (1.7-9.3); NEUTROPHILS # (AUTO) 30.7 K/uL (1.8-7.7); NEUTROPHILS % (AUTO) 85.8 % (40.0-70.0); PLATELET COUNT (AUTO) 264 K/uL (130-430); RED BLOOD CELL COUNT(AUTO) 3.57 MIL/uL (4.2-6.2); RED CELL DISTRIBUTION WIDTH 13.8 % (9.0-15.0)
[2017-02-04 06:51] LABS: ANION GAP 6 (5-15); CALCIUM 8.2 mg/dL (8.4-11.0); CHLORIDE 101 mmol/L (98-107); CREATININE 1.95 mg/dL (0.55-1.30); GLUCOSE 99 mg/dL (70-99); POTASSIUM 3.2 mmol/L (3.5-5.1); SODIUM SERUM 142 mmol/L (136-145); UREA NITROGEN, BLOOD 70 mg/dL (8-21)
[2017-02-04 06:53] LABS: WHITE BLOOD COUNT (AUTO) 35.8 K/uL (4.8-10.8)
[2017-02-04] MEDS ORDERED: POTASSIUM CHLORIDE 20 MEQ/PKT PACKET PO ONE (07:15)
[2017-02-04] MEDS: METHIMAZOLE 5 MG TABLET PO SCH ×2 (08:32→20:34)
[2017-02-04] MEDS: LACTOBACILLUS RHAMNOSUS GG 1 CAP CAPSULE NG SCH ×2 (08:33→20:34)
[2017-02-04] MEDS: PANTOPRAZOLE SODIUM 40 MG/VIAL (PROTONIX) IVP SCH ×2 (08:33→20:34)
[2017-02-04] MEDS: AMIODARONE HCL 200 MG TABLET PO SCH (08:33)
[2017-02-04] MEDS: PROPRANOLOL HCL 10 MG TABLET (INDERAL) PO SCH (08:33)
[2017-02-04] MEDS: VANCOMYCIN HCL ORAL SOLUTION 250 MG/5 ML, 80 ML NG SCH ×2 (08:36→20:36)
[2017-02-04] MEDS: ATORVASTATIN 20 MG TABLET PO SCH (20:34)
[2017-02-05] VITALS (34 sets, daily range): BP systolic 104–140
[2017-02-05] MEDS: NITROGLYCERIN 1 INCH (GM) OINT. TP SCH ×3 (01:20→16:26)
[2017-02-05] MEDS: D5W 1,000 ML IV SCH ×2 (02:37→09:06)
[2017-02-05] MEDS: IPRATROPIUM/ALBUTEROL SULFATE 3 ML AMPUL.NEB INH SCH ×6 (04:16→23:13)
[2017-02-05] MEDS: metroNIDAZOLE 250 mg/NS 50 ML IV SCH ×3 (05:12→22:07)
[2017-02-05] MEDS: INSULIN ASPART 100 UNITS/ML, 10 ML VIAL (NovoLOG) SUBCUT PRN ×4 (05:14→22:01)
[2017-02-05 06:39] LABS: BASOPHILS % (AUTO) 0.1 % (0.0-2.0); EOSINOPHILS # (AUTO) 0.2 K/uL (0.0-0.4); EOSINOPHILS % (AUTO) 0.7 % (0.0-4.0); HEMATOCRIT 29.3 % (36-54); HEMOGLOBIN 9.8 g/dL (14.0-18.0); LYMPHOCYTES % (AUTO) 6.9 % (20.5-51.5); MEAN CORPUSCULAR HEMOGLOBIN 30 pg (27-31); MEAN CORPUSCULAR HGB CONC 33 % (32-36); MEAN CORPUSCULAR VOLUME 90 fL (79.0-98.0); MONOCYTES # (AUTO) 1.5 K/uL (0.0-1.0); MONOCYTES % (AUTO) 5.4 % (1.7-9.3); NEUTROPHILS # (AUTO) 24.7 K/uL (1.8-7.7); NEUTROPHILS % (AUTO) 86.9 % (40.0-70.0); PLATELET COUNT (AUTO) 269 K/uL (130-430); RED BLOOD CELL COUNT(AUTO) 3.27 MIL/uL (4.2-6.2); RED CELL DISTRIBUTION WIDTH 13.6 % (9.0-15.0); WHITE BLOOD COUNT (AUTO) 28.4 K/uL (4.8-10.8)
[2017-02-05 06:49] LABS: ANION GAP 9 (5-15); CALCIUM 8.3 mg/dL (8.4-11.0); CHLORIDE 102 mmol/L (98-107); CREATININE 1.79 mg/dL (0.55-1.30); POTASSIUM 3.3 mmol/L (3.5-5.1); SODIUM SERUM 139 mmol/L (136-145); UREA NITROGEN, BLOOD 61 mg/dL (8-21)
[2017-02-05 07:08] LABS: GLUCOSE 192 mg/dL (70-99)
[2017-02-05] MEDS: VANCOMYCIN HCL ORAL SOLUTION 250 MG/5 ML, 80 ML NG SCH ×2 (09:02→22:05)
[2017-02-05] MEDS: METHIMAZOLE 5 MG TABLET PO SCH ×2 (09:03→22:06)
[2017-02-05] MEDS: PANTOPRAZOLE SODIUM 40 MG/VIAL (PROTONIX) IVP SCH ×2 (09:03→22:04)
[2017-02-05] MEDS: LACTOBACILLUS RHAMNOSUS GG 1 CAP CAPSULE NG SCH ×2 (09:03→22:04)
[2017-02-05] MEDS ORDERED: POTASSIUM CHLORIDE 20 MEQ/PKT PACKET PO ONE (18:30)
[2017-02-05] MEDS: FLUCONAZOLE 400 mg/ NS 200 ML IV SCH (19:08)
[2017-02-05] MEDS: ATORVASTATIN 20 MG TABLET PO SCH (22:06)
[2017-02-06] VITALS (32 sets, daily range): BP systolic 93–143
[2017-02-06] MEDS: D5W 1,000 ML IV SCH ×2 (00:52→18:12)
[2017-02-06] MEDS: NITROGLYCERIN 1 INCH (GM) OINT. TP SCH (00:52)
[2017-02-06] MEDS: IPRATROPIUM/ALBUTEROL SULFATE 3 ML AMPUL.NEB INH SCH ×6 (03:11→23:37)
[2017-02-06] MEDS: INSULIN ASPART 100 UNITS/ML, 10 ML VIAL (NovoLOG) SUBCUT PRN ×3 (04:19→16:13)
[2017-02-06] MEDS: metroNIDAZOLE 250 mg/NS 50 ML IV SCH (06:31)
[2017-02-06 07:13] LABS: BASOPHILS % (AUTO) 0.1 % (0.0-2.0); EOSINOPHILS # (AUTO) 0.1 K/uL (0.0-0.4); EOSINOPHILS % (AUTO) 0.4 % (0.0-4.0); HEMATOCRIT 27.8 % (36-54); HEMOGLOBIN 9.3 g/dL (14.0-18.0); LYMPHOCYTES # (AUTO) 1.7 K/uL (1.0-5.5); LYMPHOCYTES % (AUTO) 6.6 % (20.5-51.5); MEAN CORPUSCULAR HEMOGLOBIN 30 pg (27-31); MEAN CORPUSCULAR HGB CONC 34 % (32-36); MEAN CORPUSCULAR VOLUME 89 fL (79.0-98.0); MONOCYTES # (AUTO) 1.9 K/uL (0.0-1.0); MONOCYTES % (AUTO) 7.6 % (1.7-9.3); NEUTROPHILS # (AUTO) 21.5 K/uL (1.8-7.7); PLATELET COUNT (AUTO) 262 K/uL (130-430); RED BLOOD CELL COUNT(AUTO) 3.11 MIL/uL (4.2-6.2); RED CELL DISTRIBUTION WIDTH 13.8 % (9.0-15.0); WHITE BLOOD COUNT (AUTO) 25.2 K/uL (4.8-10.8)
[2017-02-06 07:36] LABS: ANION GAP 10 (5-15); CHLORIDE 102 mmol/L (98-107); CREATININE 1.75 mg/dL (0.55-1.30); GLUCOSE 148 mg/dL (70-99); POTASSIUM 3.6 mmol/L (3.5-5.1); SODIUM SERUM 140 mmol/L (136-145); UREA NITROGEN, BLOOD 51 mg/dL (8-21)
[2017-02-06 07:42] LABS: PHOSPHORUS 4.2 mg/dL (2.7-4.5)
[2017-02-06] MEDS: PANTOPRAZOLE SODIUM 40 MG/VIAL (PROTONIX) IVP SCH ×2 (08:25→22:11)
[2017-02-06] MEDS: LACTOBACILLUS RHAMNOSUS GG 1 CAP CAPSULE NG SCH ×2 (08:25→22:11)
[2017-02-06] MEDS: VANCOMYCIN HCL ORAL SOLUTION 250 MG/5 ML, 80 ML NG SCH ×2 (08:25→22:12)
[2017-02-06] MEDS: METHIMAZOLE 5 MG TABLET PO SCH ×2 (08:25→22:11)
[2017-02-06 11:33] LABS: NEUTROPHILS % (AUTO) 85.3 % (40.0-70.0)
[2017-02-06] MEDS: FLUCONAZOLE 400 mg/ NS 200 ML IV SCH (18:13)
[2017-02-06] MEDS: ATORVASTATIN 20 MG TABLET PO SCH (22:11)
[2017-02-07] VITALS (31 sets, daily range): BP systolic 99–140
[2017-02-07] MEDS: IPRATROPIUM/ALBUTEROL SULFATE 3 ML AMPUL.NEB INH SCH ×4 (03:44→23:52)
[2017-02-07] MEDS: INSULIN ASPART 100 UNITS/ML, 10 ML VIAL (NovoLOG) SUBCUT PRN ×3 (04:57→21:51)
[2017-02-07 06:51] LABS: BASOPHILS % (AUTO) 0.1 % (0.0-2.0); EOSINOPHILS # (AUTO) 0.1 K/uL (0.0-0.4); EOSINOPHILS % (AUTO) 0.6 % (0.0-4.0); HEMATOCRIT 29.9 % (36-54); HEMOGLOBIN 9.9 g/dL (14.0-18.0); LYMPHOCYTES # (AUTO) 1.8 K/uL (1.0-5.5); LYMPHOCYTES % (AUTO) 8.5 % (20.5-51.5); MEAN CORPUSCULAR HEMOGLOBIN 29 pg (27-31); MEAN CORPUSCULAR HGB CONC 33 % (32-36); MEAN CORPUSCULAR VOLUME 89 fL (79.0-98.0); MONOCYTES # (AUTO) 1.9 K/uL (0.0-1.0); MONOCYTES % (AUTO) 8.8 % (1.7-9.3); NEUTROPHILS # (AUTO) 17.6 K/uL (1.8-7.7); PLATELET COUNT (AUTO) 293 K/uL (130-430); RED BLOOD CELL COUNT(AUTO) 3.38 MIL/uL (4.2-6.2); RED CELL DISTRIBUTION WIDTH 13.9 % (9.0-15.0); WHITE BLOOD COUNT (AUTO) 21.4 K/uL (4.8-10.8)
[2017-02-07 06:58] LABS: ANION GAP 8 (5-15); CALCIUM 8.5 mg/dL (8.4-11.0); CHLORIDE 104 mmol/L (98-107); CREATININE 1.64 mg/dL (0.55-1.30); GLUCOSE 166 mg/dL (70-99); POTASSIUM 3.9 mmol/L (3.5-5.1); SODIUM SERUM 137 mmol/L (136-145); UREA NITROGEN, BLOOD 46 mg/dL (8-21)
[2017-02-07] MEDS: VANCOMYCIN HCL ORAL SOLUTION 250 MG/5 ML, 80 ML NG SCH ×2 (08:17→20:19)
[2017-02-07] MEDS: LACTOBACILLUS RHAMNOSUS GG 1 CAP CAPSULE NG SCH ×2 (08:18→20:20)
[2017-02-07] MEDS: METHIMAZOLE 5 MG TABLET PO SCH ×2 (08:18→20:19)
[2017-02-07] MEDS: PANTOPRAZOLE SODIUM 40 MG/VIAL (PROTONIX) IVP SCH ×2 (08:18→20:19)
[2017-02-07] MEDS ORDERED: THORAZINE (chlorproMAZINE) 25 MG TAB PO PRN (09:00)
[2017-02-07] MEDS: D5W 1,000 ML IV SCH (14:37)
[2017-02-07] MEDS: FLUCONAZOLE 400 mg/ NS 200 ML IV SCH (18:10)
[2017-02-07] MEDS: ATORVASTATIN 20 MG TABLET PO SCH (20:20)
[2017-02-08] VITALS (32 sets, daily range): BP systolic 111–142
[2017-02-08] MEDS: IPRATROPIUM/ALBUTEROL SULFATE 3 ML AMPUL.NEB INH SCH ×6 (04:58→23:42)
[2017-02-08 06:41] LABS: BASOPHILS % (AUTO) 0.2 % (0.0-2.0); EOSINOPHILS # (AUTO) 0.1 K/uL (0.0-0.4); EOSINOPHILS % (AUTO) 0.6 % (0.0-4.0); HEMATOCRIT 27.1 % (36-54); HEMOGLOBIN 9.1 g/dL (14.0-18.0); LYMPHOCYTES # (AUTO) 1.5 K/uL (1.0-5.5); LYMPHOCYTES % (AUTO) 7.3 % (20.5-51.5); MEAN CORPUSCULAR HEMOGLOBIN 30 pg (27-31); MEAN CORPUSCULAR HGB CONC 34 % (32-36); MEAN CORPUSCULAR VOLUME 89 fL (79.0-98.0); MONOCYTES # (AUTO) 1.4 K/uL (0.0-1.0); MONOCYTES % (AUTO) 7.1 % (1.7-9.3); NEUTROPHILS % (AUTO) 84.8 % (40.0-70.0); PLATELET COUNT (AUTO) 311 K/uL (130-430); RED BLOOD CELL COUNT(AUTO) 3.03 MIL/uL (4.2-6.2); RED CELL DISTRIBUTION WIDTH 13.9 % (9.0-15.0)
[2017-02-08 06:55] LABS: ALANINE AMINOTRANSFERASE 31 U/L (12-78); ALBUMIN 1.8 g/dL (3.4-4.8); ANION GAP 10 (5-15); ASPARTATE AMINOTRANSFERASE 47 U/L (10-37); CALCIUM 8.5 mg/dL (8.4-11.0); CHLORIDE 100 mmol/L (98-107); CREATININE 1.52 mg/dL (0.55-1.30); GLUCOSE 144 mg/dL (70-99); POTASSIUM 3.9 mmol/L (3.5-5.1); SODIUM SERUM 133 mmol/L (136-145); TOTAL BILIRUBIN 0.5 mg/dL (0.0-1.0); UREA NITROGEN, BLOOD 41 mg/dL (8-21)
[2017-02-08] MEDS: VANCOMYCIN HCL ORAL SOLUTION 250 MG/5 ML, 80 ML NG SCH (09:04)
[2017-02-08] MEDS: LACTOBACILLUS RHAMNOSUS GG 1 CAP CAPSULE NG SCH ×2 (09:04→21:56)
[2017-02-08] MEDS: METHIMAZOLE 5 MG TABLET PO SCH ×2 (09:04→21:56)
[2017-02-08] MEDS: PANTOPRAZOLE SODIUM 40 MG/VIAL (PROTONIX) IVP SCH ×2 (09:04→21:56)
[2017-02-08] MEDS: D5W 1,000 ML IV SCH (09:06)
[2017-02-08] MEDS: INSULIN ASPART 100 UNITS/ML, 10 ML VIAL (NovoLOG) SUBCUT PRN ×3 (10:43→22:17)
[2017-02-08] MEDS: FLUCONAZOLE 400 mg/ NS 200 ML IV SCH (18:35)
[2017-02-08] MEDS: ATORVASTATIN 20 MG TABLET PO SCH (21:56)
[2017-02-09] VITALS (31 sets, daily range): BP systolic 104–155
[2017-02-09] MEDS: IPRATROPIUM/ALBUTEROL SULFATE 3 ML AMPUL.NEB INH SCH ×5 (03:55→23:11)
[2017-02-09] MEDS: INSULIN ASPART 100 UNITS/ML, 10 ML VIAL (NovoLOG) SUBCUT PRN ×3 (05:13→23:15)
[2017-02-09] MEDS: D5W 1,000 ML IV SCH (05:33)
[2017-02-09] MEDS: METHIMAZOLE 5 MG TABLET PO SCH ×2 (08:53→21:45)
[2017-02-09] MEDS: LACTOBACILLUS RHAMNOSUS GG 1 CAP CAPSULE NG SCH ×2 (08:53→21:45)
[2017-02-09] MEDS: PANTOPRAZOLE SODIUM 40 MG/VIAL (PROTONIX) IVP SCH ×2 (08:53→21:44)
[2017-02-09] MEDS: FLUCONAZOLE 400 mg/ NS 200 ML IV SCH (19:41)
[2017-02-09] MEDS: ATORVASTATIN 20 MG TABLET PO SCH (21:45)
[2017-02-10] VITALS (32 sets, daily range): BP systolic 111–138
[2017-02-10] MEDS: IPRATROPIUM/ALBUTEROL SULFATE 3 ML AMPUL.NEB INH SCH ×6 (02:59→23:02)
[2017-02-10] MEDS: INSULIN ASPART 100 UNITS/ML, 10 ML VIAL (NovoLOG) SUBCUT PRN ×2 (04:14→11:38)
[2017-02-10] MEDS: D5W 1,000 ML IV SCH (04:15)
[2017-02-10 06:41] LABS: BASOPHILS % (AUTO) 0.1 % (0.0-2.0); EOSINOPHILS # (AUTO) 0.1 K/uL (0.0-0.4); EOSINOPHILS % (AUTO) 0.8 % (0.0-4.0); HEMOGLOBIN 8.4 g/dL (14.0-18.0); LYMPHOCYTES # (AUTO) 1.3 K/uL (1.0-5.5); LYMPHOCYTES % (AUTO) 7.7 % (20.5-51.5); MEAN CORPUSCULAR HEMOGLOBIN 30 pg (27-31); MEAN CORPUSCULAR HGB CONC 34 % (32-36); MEAN CORPUSCULAR VOLUME 89 fL (79.0-98.0); MONOCYTES # (AUTO) 1.1 K/uL (0.0-1.0); MONOCYTES % (AUTO) 6.7 % (1.7-9.3); NEUTROPHILS # (AUTO) 14.5 K/uL (1.8-7.7); NEUTROPHILS % (AUTO) 84.7 % (40.0-70.0); PLATELET COUNT (AUTO) 304 K/uL (130-430); RED CELL DISTRIBUTION WIDTH 13.8 % (9.0-15.0)
[2017-02-10 06:59] LABS: ANION GAP 7 (5-15); CALCIUM 8.3 mg/dL (8.4-11.0); CHLORIDE 100 mmol/L (98-107); CREATININE 1.24 mg/dL (0.55-1.30); GLUCOSE 145 mg/dL (70-99); POTASSIUM 4.3 mmol/L (3.5-5.1); SODIUM SERUM 132 mmol/L (136-145); UREA NITROGEN, BLOOD 30 mg/dL (8-21)
[2017-02-10] MEDS: PANTOPRAZOLE SODIUM 40 MG/VIAL (PROTONIX) IVP SCH ×2 (11:31→20:49)
[2017-02-10] MEDS: METHIMAZOLE 5 MG TABLET PO SCH ×2 (11:34→20:50)
[2017-02-10] MEDS: LACTOBACILLUS RHAMNOSUS GG 1 CAP CAPSULE NG SCH ×2 (11:34→20:50)
[2017-02-10] MEDS: FLUCONAZOLE 400 mg/ NS 200 ML IV SCH (18:18)
[2017-02-10] MEDS: ATORVASTATIN 20 MG TABLET PO SCH (20:49)
[2017-02-11] VITALS (35 sets, daily range): BP systolic 95–141
[2017-02-11] MEDS: IPRATROPIUM/ALBUTEROL SULFATE 3 ML AMPUL.NEB INH SCH ×5 (04:20→23:16)
[2017-02-11 07:10] LABS: ANION GAP 7 (5-15); CALCIUM 8.7 mg/dL (8.4-11.0); CHLORIDE 101 mmol/L (98-107); GLUCOSE 141 mg/dL (70-99); POTASSIUM 3.9 mmol/L (3.5-5.1); SODIUM SERUM 132 mmol/L (136-145); UREA NITROGEN, BLOOD 28 mg/dL (8-21)
[2017-02-11] MEDS: METHIMAZOLE 5 MG TABLET PO SCH ×2 (09:25→21:44)
[2017-02-11] MEDS: LACTOBACILLUS RHAMNOSUS GG 1 CAP CAPSULE NG SCH ×2 (09:25→21:00)
[2017-02-11] MEDS: PANTOPRAZOLE SODIUM 40 MG/VIAL (PROTONIX) IVP SCH ×2 (09:25→21:43)
[2017-02-11] MEDS: FLUCONAZOLE 400 mg/ NS 200 ML IV SCH (19:35)
[2017-02-11] MEDS: ATORVASTATIN 20 MG TABLET PO SCH (21:44)
[2017-02-11] MEDS: D5W 1,000 ML IV SCH (21:57)
[2017-02-12] VITALS (22 sets, daily range): BP systolic 107–151
[2017-02-12] MEDS: IPRATROPIUM/ALBUTEROL SULFATE 3 ML AMPUL.NEB INH SCH ×2 (03:54→07:17)
[2017-02-12 06:49] LABS: BASOPHILS # (AUTO) 0.1 K/uL (0.0-0.2); BASOPHILS % (AUTO) 0.6 % (0.0-2.0); EOSINOPHILS # (AUTO) 0.1 K/uL (0.0-0.4); EOSINOPHILS % (AUTO) 1.1 % (0.0-4.0); HEMATOCRIT 26.7 % (36-54); HEMOGLOBIN 8.8 g/dL (14.0-18.0); LYMPHOCYTES # (AUTO) 1.3 K/uL (1.0-5.5); LYMPHOCYTES % (AUTO) 10.2 % (20.5-51.5); MEAN CORPUSCULAR HEMOGLOBIN 30 pg (27-31); MEAN CORPUSCULAR HGB CONC 33 % (32-36); MEAN CORPUSCULAR VOLUME 90 fL (79.0-98.0); MONOCYTES # (AUTO) 0.8 K/uL (0.0-1.0); MONOCYTES % (AUTO) 6.1 % (1.7-9.3); NEUTROPHILS # (AUTO) 10.1 K/uL (1.8-7.7); PLATELET COUNT (AUTO) 368 K/uL (130-430); RED BLOOD CELL COUNT(AUTO) 2.98 MIL/uL (4.2-6.2); RED CELL DISTRIBUTION WIDTH 13.8 % (9.0-15.0); WHITE BLOOD COUNT (AUTO) 12.4 K/uL (4.8-10.8)
[2017-02-12 07:09] LABS: ANION GAP 10 (5-15); CALCIUM 8.8 mg/dL (8.4-11.0); CHLORIDE 100 mmol/L (98-107); CREATININE 1.17 mg/dL (0.55-1.30); GLUCOSE 128 mg/dL (70-99); SODIUM SERUM 134 mmol/L (136-145); UREA NITROGEN, BLOOD 27 mg/dL (8-21)
[2017-02-12] MEDS ORDERED: MORPHINE 4 MG/ML INJ. SYRINGE IVP PRN (10:30)
[2017-02-12] MEDS ORDERED: MORPHINE 2 MG/ML INJ. SYRINGE IVP PRN (10:30)
[2017-02-12] MEDS: MORPHINE 2 MG/ML INJ. SYRINGE IVP PRN (17:08)
[2017-02-13 01:47] VITALS: BP_SYST 112
[2017-02-13 08:00] VITALS: BP_SYST 115
[2017-02-13 12:41] VITALS: BP_SYST 119
[2017-02-13] MEDS: MORPHINE 2 MG/ML INJ. SYRINGE IVP PRN (16:29)
[2017-02-13] MEDS ORDERED: MORPHINE I.V. DRIP 100 ML IV PRN (16:30)
[2017-02-13 17:11] VITALS: BP_SYST 127
[2017-02-13] MEDS ORDERED: MORPHINE SULFATE 100 MG/100 ML DRIP IV PRN (18:00)
[2017-02-13] MEDS: MORPHINE SULFATE 100 MG/100 ML DRIP IV PRN (18:34)
[2017-02-13 20:00] VITALS: BP_SYST 121
[2017-02-14 01:40] VITALS: BP_SYST 130
[2017-02-14 08:00] VITALS: BP_SYST 126
[2017-02-14 11:55] VITALS: BP_SYST 131
[2017-02-14 12:20] VITALS: BP_SYST 131
[2017-02-14] MEDS: MORPHINE SULFATE 100 MG/100 ML DRIP IV PRN ×2 (18:45→21:32)
== END 2017-02-14 19:07 | disposition expired | DRG 870 ==
LOC: SED 18:07 → SIC 19:44 → SMU 02-12 15:00
PROVIDERS: ADMIT Internal Medicine; ATTEND Internal Medicine
PROC: 5A1955Z Respiratory Ventilation, Greater than 96 Consecutive Hours (ICD-10-PCS; 2017-01-24)
PROC: 0BH17EZ Insertion of Endotracheal Airway into Trachea, Via Natural or Artificial Opening (ICD-10-PCS; 2017-01-24)
PROC: 06HM33Z Insertion of Infusion Device into Right Femoral Vein, Percutaneous Approach (ICD-10-PCS; principal; 2017-01-25)
PROC: 02HV33Z Insertion of Infusion Device into Superior Vena Cava, Percutaneous Approach (ICD-10-PCS; 2017-02-11)
DX: A41.9 Sepsis, unspecified organism (principal); I21.4 Non-ST elevation (NSTEMI) myocardial infarction; J69.0 Pneumonitis due to inhalation of food and vomit; I46.9 Cardiac arrest, cause unspecified; G93.1 Anoxic brain damage, not elsewhere classified; J15.6 Pneumonia due to other Gram-negative bacteria; N17.0 Acute kidney failure with tubular necrosis; R65.21 Severe sepsis with septic shock; B37.89 Other sites of candidiasis; K55.9 Vascular disorder of intestine, unspecified; I47.2 Ventricular tachycardia; Z99.11 Dependence on respirator [ventilator] status; E87.0 Hyperosmolality and hypernatremia; I13.0 Hypertensive heart and chronic kidney disease with heart failure and stage 1 through stage 4 chronic kidney disease, or unspecified chronic kidney disease; I42.0 Dilated cardiomyopathy; J44.1 Chronic obstructive pulmonary disease with (acute) exacerbation; J44.0 Chronic obstructive pulmonary disease with (acute) lower respiratory infection; L03.113 Cellulitis of right upper limb; E87.1 Hypo-osmolality and hyponatremia; I50.9 Heart failure, unspecified; E05.90 Thyrotoxicosis, unspecified without thyrotoxic crisis or storm; E03.9 Hypothyroidism, unspecified; E78.5 Hyperlipidemia, unspecified; E86.0 Dehydration; F17.200 Nicotine dependence, unspecified, uncomplicated; I49.9 Cardiac arrhythmia, unspecified; I73.9 Peripheral vascular disease, unspecified; I80.8 Phlebitis and thrombophlebitis of other sites; N18.9 Chronic kidney disease, unspecified; R73.9 Hyperglycemia, unspecified; E87.6 Hypokalemia; B96.1 Klebsiella pneumoniae [K. pneumoniae] as the cause of diseases classified elsewhere; E04.9 Nontoxic goiter, unspecified; Z79.899 Other long term (current) drug therapy; Z98.49 Cataract extraction status, unspecified eye; Z86.79 Personal history of other diseases of the circulatory system; Z79.4 Long term (current) use of insulin
CPT/HCPCS: 36415; 36600; 70450-TC; 71010; 74000-TC; 80048; 80053; 80061; 82272; 82550-TC; 82803-TC; 82962; 83036; 83735-TC; 83880; 83930-TC; 83935-TC; 84100-TC; 84439; 84443-TC; 84480; 84484; 85007; 85025; 85027; 85610-TC; 85730-TC; 87040-TC; 87070-TC; 87081; 87186-TC; 87205-TC; 90935; 92950; 93005; 93306; 93971; 94002; 94003; 94640; 94760; 95816; 95824; 96374; 96375; 99285; A6209; C9113; J0282; J0696; J1030; J1160; J1450; J1644; J1650; J1815; J1940; J2060; J2270; J2543; J2930; J3370; J3480; J3490; J7030; J7040; J7050; J7060; J7120; NO CODE; P9041; Q0161